=== PATIENT | male | born 1970 | race Caucasian/White ===

== ENCOUNTER 2017-04-25 19:35 | Emergency (ER) | payer BC ==
[~2017-04-25] VITALS: Ht 177.8 cm; Wt 87.9 kg
[~2017-04-25 19:35] MED LIST: ANAPROX DS550 M1 PO; DILAUDID2 MG PO; FLOMAX0.4 MG PO; PROMETHAZINE HC25 M1 PO
[2017-04-25 20:34] LABS: ADD MIUA? NO; BILIRUBIN NEGATIVE; BLOOD NEGATIVE; COLOR YELLOW ((YELLOW)); GLUCOSE (STRIP) NEGATIVE; KETONES NEGATIVE; LEUKOCYTES NEGATIVE; NITRITE NEGATIVE; PROTEIN (STRIP) 30; SPECIFIC GRAVITY 1.026 (1.000-1.030); UCUL ADDED? NO
[2017-04-25 21:00] LABS: HEMATOCRIT 41.2 % (38.0-50.0); MCH 30.6 PG (29.0-34.0); MCHC 33.3 G/DL (30.0-36.0); MCV 92.2 FL (86-99); PLATELET COUNT 236 K/uL (156-360); RBC DIS.WIDTH-CV 13.3 % (11.8-14.6); RBC DIS.WIDTH-SD 45.1 % (39-53); RED BLOOD COUNT 4.47 M/uL (4.00-5.50); WHITE BLOOD COUNT 11.5 K/uL (4.1-10.2)
[2017-04-25 21:08] LABS: CHLORIDE 105 mEq/L (99-109); POTASSIUM 4.1 mEq/L (3.7-5.4); SODIUM 142 mEq/L (136-147)
[2017-04-25 21:10] LABS: GLUCOSE 88 mg/dL (70-99)
[2017-04-25 21:12] LABS: ANION GAP 8 MEQ/L (2-14)
[2017-04-25 21:14] LABS: GFR ESTIMATE (CALCULATED) > 59 mL/min/
[2017-04-25 21:15] LABS: UREA NITROGEN (BUN) 17 mg/dL (9-23)
[2017-04-25] MEDS ORDERED: NORCO 5/3251 TABLET PO (23:15)
[2017-04-25] MEDS ORDERED: ZOFRAN ODT8 MG PO (23:15)
[2017-04-25 23:30] VITALS: BP 110/73
== END 2017-04-25 23:31 | disposition home or self-care (01) ==
LOC: EME 19:35 → RME 19:35
DX: R10.32 Left lower quadrant pain (principal); Z87.442 Personal history of urinary calculi; Z87.891 Personal history of nicotine dependence
CPT/HCPCS: 74176; 80048; 81003; 85027; 99281; 99285; J1885; J2270; J2405

== ENCOUNTER → 2018-02-27 | Outpatient (CLI) | payer BC ==
[~2018-02-27] MED LIST changes: +NORCO 5/3251 TABLET PO; +ZOFRAN ODT8 MG PO
== END | disposition home or self-care (01) ==
LOC: RES 07:55
DX: J98.4 Other disorders of lung (principal)
CPT/HCPCS: 94060; 94726; 94729